=== PATIENT | male | born 1960 ===

== ENCOUNTER 2023-04-13 18:48 | Emergency (ER) | payer OTHER ==
[~2023-04-13] VITALS: Ht 172.7 cm; Wt 77.3 kg
[2023-04-13 19:00] VITALS: BP 135/80; PULSE 103; RESP 18; O2SAT 97
[2023-04-13] MEDS ORDERED: CEPH500C PO (23:52)
== END 2023-04-14 00:01 | disposition home or self-care (01) ==
LOC: EEVIPCON 18:48 → ER 18:48
DX: L03.113 Cellulitis of right upper limb (principal); I10 Essential (primary) hypertension